=== PATIENT | male | born 1960 | race Hispanic/Latino ===

== ENCOUNTER 2019-12-13 16:05 | Emergency (ER) | payer OTHER ==
[~2019-12-13 16:05] MED LIST: ALBI30PE3 SQ; AMLO10TA7 PO; ASPI-555 PO; HYDR25TA PO; INSU100V3 SQ; INSU3INS3 SQ; IRBE300T19 PO; OMEP40CA13 PO; SIMV-43 PO; VENL-53 PO
[2019-12-13] MEDS ORDERED: ZOSYN 3.375GM+NS 50ML 50 ML IV ONE (18:01)
[2019-12-13] MEDS ORDERED: VANCOMYCIN 1GM+NS 250ML 500 ML IV ONE (18:01)
[2019-12-13 18:11] LABS: BASOPHILS % (AUTO) 0.5 % (0.0-5.0); EOSINOPHILS % (AUTO) 4.9 % (0.0-8.0); HEMATOCRIT 41.1 % (42-54); LYMPHOCYTES % (AUTO) 26.4 % (21.0-51.0); MEAN CORPUSCULAR HEMOGLOBIN 28.9 pg (27.0-33.0); MEAN CORPUSCULAR HGB CONC 33.1 g/dL (32.0-36.0); MEAN CORPUSCULAR VOLUME 87.4 fL (79-99); NEUTROPHILS % (AUTO) 61.8 % (40.0-77.0); PLATELET COUNT (AUTO) 140 K/uL (130-400); RED CELL DISTRIBUTION WIDTH 13.8 % (11.0-15.5); WHITE BLOOD COUNT (AUTO) 7.8 K/uL (4.8-10.8)
[2019-12-13 18:44] LABS: CREATININE 0.9 mg/dL (0.5-1.5); POTASSIUM 4.1 mmol/L (3.5-5.1)
[2019-12-13 18:48] LABS: ALBUMIN 3.2 g/dL (3.5-5.0); BILIRUBIN,TOTAL 0.7 mg/dL (0.2-1.0); TOTAL PROTEIN, SERUM 6.7 g/dL (6.0-8.3)
[2019-12-13] MEDS ORDERED: IOHEXOL-350 75 ML VIAL IV ONE (19:16)
== END 2019-12-13 21:26 | disposition home or self-care (01) ==
LOC: EDH 16:05
DX: N43.3 Hydrocele, unspecified (principal); E11.9 Type 2 diabetes mellitus without complications; E78.5 Hyperlipidemia, unspecified; I10 Essential (primary) hypertension; Z90.49 Acquired absence of other specified parts of digestive tract
CPT/HCPCS: 36415; 72193; 76870; 80053; 83605; 85025; 87040; 96365; 96366; 96367; 99285; J2543; J3370; Q9967

== ENCOUNTER → 2024-02-08 | Outpatient (CLI) | payer MEDICARE ==
[~2024-02-08] MED LIST changes: +AMLO-258 PO; -AMLO10TA7 PO; -ASPI-555 PO; +ASPI-556 PO; -IRBE300T19 PO; +IRBE300T26 PO; -OMEP40CA13 PO; +OMEP40CA21 PO
== END | disposition home or self-care (01) ==
LOC: RAH 16:55
PROVIDERS: ATTEND Internal Medicine
DX: M54.16 Radiculopathy, lumbar region (principal); M62.830 Muscle spasm of back
CPT/HCPCS: 72100

== ENCOUNTER → 2024-05-02 | Outpatient (CLI) | payer MEDICARE | END | disposition home or self-care (01) | LOC: OIH 10:44 | PROVIDERS: ATTEND Internal Medicine | DX: M16.12 Unilateral primary osteoarthritis, left hip (principal) | CPT/HCPCS: 73502 ==

== ENCOUNTER 2024-07-27 18:57 | Inpatient (IN) | payer MEDICARE ==
[~2024-07-27] VITALS: Ht 180.3 cm; Wt 127.3 kg
[~2024-07-27 18:57] MED LIST changes: +AZIT500T4 PO
[2024-07-27 19:32] LABS: BASOPHILS # (AUTO) 0.05 K/uL (0.00-0.20); BASOPHILS % (AUTO) 0.5 % (0.0-5.0); EOSINOPHILS # (AUTO) 0.12 K/uL (0.00-0.70); EOSINOPHILS % (AUTO) 1.1 % (0.0-8.0); HEMATOCRIT 37.5 % (42-54); LYMPHOCYTES # (AUTO) 1.6 K/uL (1.0-4.8); LYMPHOCYTES % (AUTO) 14.9 % (21.0-51.0); MEAN CORPUSCULAR HEMOGLOBIN 30.7 pg (27.0-33.0); MEAN CORPUSCULAR HGB CONC 33.1 g/dL (32.0-36.0); MEAN CORPUSCULAR VOLUME 92.8 fL (79-99); MONOCYTES # (AUTO) 0.4 K/uL (0.1-1.0); MONOCYTES % (AUTO) 4.1 % (3.0-13.0); NEUTROPHILS # (AUTO) 8.5 K/uL (1.8-7.7); NEUTROPHILS % (AUTO) 78.5 % (40.0-77.0); PLATELET COUNT (AUTO) 207 K/uL (130-400); RED BLOOD CELL COUNT(AUTO) 4.04 MIL/uL (4.50-6.20); RED CELL DISTRIBUTION WIDTH 13.6 % (11.0-15.5); WHITE BLOOD COUNT (AUTO) 10.8 K/uL (4.8-10.8)
[2024-07-27 19:36] LABS: CREATININE 1.8 mg/dL (0.5-1.3); POTASSIUM 4.3 mmol/L (3.5-5.1)
[2024-07-27 19:40] LABS: ALBUMIN 3.2 g/dL (3.5-5.0); BILIRUBIN,TOTAL 1.1 mg/dL (0.2-1.0); TOTAL PROTEIN, SERUM 5.9 g/dL (6.0-8.3)
[2024-07-27] MEDS: 0.9%NACL 1000ML 1,000 ML IV ONE ×2 (19:52→20:04)
[2024-07-27] MEDS: dexaMETHasone SOD PHOSPHATE 4 MG/ML 1ML VIAL IM ONE (19:58)
[2024-07-27] MEDS: ONDANSETRON 4MG INJ IVP ONE (19:58)
[2024-07-27] MEDS: mecliZINE HCL 25 MG TABLET PO ONE (19:58)
[2024-07-27] MEDS ORDERED: NOREPINEPHRIN 8MG/250ML NS 250 ML IV SCH (20:30)
[2024-07-27] MEDS: NOREPINEPHRIN 4MG/NS 250ML 250 ML IV SCH (20:38)
[2024-07-27] MEDS: AZITHROMYCIN 500MG+NS 250ML 250 ML IVPB SCH (21:55)
[2024-07-27] MEDS: cefTRIAXone 1G VIAL IVPB ONE (21:55)
[2024-07-27] MEDS ORDERED: VANCOMYCIN KIT 1 GM/250 ML IV.KIT IV ONE (22:00)
[2024-07-27] MEDS ORDERED: acetaMINOPHEN 325 MG TAB PO PRN (22:00)
[2024-07-27] MEDS ORDERED: VANCOMYCIN PROTOCOL PER PHARMACY IV SCH (22:00)
[2024-07-27] MEDS: 0.9%NACL 1000ML 1,000 ML IV SCH (22:00)
[2024-07-27] MEDS: ceFEPime HCL 1 GM VIAL IVPB SCH (22:36)
[2024-07-27] MEDS: IpraTROPium/alBUTERol SULFATE 3 ML SOLUTION IH SCH (23:01)
[2024-07-27 23:02] VITALS: PULSE 86; RESP 18; O2SAT 96
[2024-07-27 23:03] VITALS: PULSE 86; RESP 18
[2024-07-27] MEDS: HEParin 5,000 UNIT VIAL SQ SCH (23:54)
[2024-07-27] MEDS: VANCOMYCIN 1.5 GM/250 ML BAG 250 ML IV SCH (23:54)
[2024-07-28] VITALS (16 sets, daily range): BP systolic 128–166; BP diastolic 66–96; PULSE 76–93; RESP 18–26; TEMP 97.7–98.7; O2SAT 91–98
[2024-07-28 00:28] LABS: SARS-CoV-2, RNA, NAAT NEGATIVE SARS CoV-2 (NEGATIVE)
[2024-07-28 00:33] LABS: INFLUENZA TYPE A Negative For Type A (NEGATIVE); INFLUENZA TYPE B Negative For Type B (NEGATIVE)
[2024-07-28 06:32] LABS: BASOPHILS # (AUTO) 0.02 K/uL (0.00-0.20); BASOPHILS % (AUTO) 0.1 % (0.0-5.0); HEMATOCRIT 40.2 % (42-54); LYMPHOCYTES # (AUTO) 0.8 K/uL (1.0-4.8); LYMPHOCYTES % (AUTO) 5.3 % (21.0-51.0); MEAN CORPUSCULAR HEMOGLOBIN 30.8 pg (27.0-33.0); MEAN CORPUSCULAR HGB CONC 33.1 g/dL (32.0-36.0); MEAN CORPUSCULAR VOLUME 93.1 fL (79-99); MONOCYTES # (AUTO) 0.3 K/uL (0.1-1.0); NEUTROPHILS % (AUTO) 91.9 % (40.0-77.0); PLATELET COUNT (AUTO) 208 K/uL (130-400); RED BLOOD CELL COUNT(AUTO) 4.32 MIL/uL (4.50-6.20); RED CELL DISTRIBUTION WIDTH 13.3 % (11.0-15.5); WHITE BLOOD COUNT (AUTO) 14.2 K/uL (4.8-10.8)
[2024-07-28 06:39] LABS: HEMOGLOBIN A1C 7.6 % (4.0-6.0)
[2024-07-28 06:53] LABS: CREATININE 1.2 mg/dL (0.5-1.3); POTASSIUM 4.5 mmol/L (3.5-5.1); THYROID STIMULATING HORMONE 0.35 uIU/mL (0.36-3.74)
[2024-07-28] MEDS: INSULIN humuLIN R 100 UNIT/ML 3ML SQ SCH (07:34)
[2024-07-28] MEDS: PANTOPRAZOLE 40 MG TAB DR PO SCH (09:09)
[2024-07-28] MEDS: acetaMINOPHEN 325 MG TAB PO PRN (16:03)
[2024-07-28] MEDS ORDERED: GLIM4TAB36 PO (17:26)
[2024-07-28] MEDS ORDERED: OMEP40CA21 PO (17:26)
[2024-07-28] MEDS ORDERED: IRBE300T26 PO (17:26)
[2024-07-28] MEDS ORDERED: DOXE50CA4 PO (17:26)
[2024-07-28] MEDS ORDERED: FURO40TA5 PO (17:26)
[2024-07-28] MEDS ORDERED: SIMV40TA59 PO (17:26)
[2024-07-28] MEDS ORDERED: TAMS-1 PO (17:26)
[2024-07-28] MEDS ORDERED: ZOLP10TA2 PO (17:26)
[2024-07-28] MEDS ORDERED: MECL-226 PO (17:26)
[2024-07-28] MEDS ORDERED: MONT-39 PO (17:26)
[2024-07-28] MEDS ORDERED: TIZA-194 PO (17:26)
[2024-07-28] MEDS ORDERED: DICL35CA3 PO (17:26)
[2024-07-28] MEDS ORDERED: ESCI-8 PO (17:26)
[2024-07-28] MEDS: ketOROlac 15MG/ML VIAL (15MG/ML) IV PRN (18:33)
[2024-07-28] MEDS: INSULIN GLARgine 100 UNITS/ML 10 ML VIAL SQ SCH (21:00)
[2024-07-29 00:23] VITALS: BP 155/86; PULSE 84; RESP 20; TEMP 98.2
[2024-07-29 03:54] VITALS: BP 161/99; PULSE 81; RESP 20; TEMP 98.2
[2024-07-29 03:54] LABS: BASOPHILS # (AUTO) 0.04 K/uL (0.00-0.20); BASOPHILS % (AUTO) 0.3 % (0.0-5.0); EOSINOPHILS # (AUTO) 0.11 K/uL (0.00-0.70); EOSINOPHILS % (AUTO) 0.9 % (0.0-8.0); HEMATOCRIT 38.6 % (42-54); IMMATURE GRANULOCYTE ABSOLUTE 0.09 K/uL (0-1); LYMPHOCYTES # (AUTO) 2.6 K/uL (1.0-4.8); LYMPHOCYTES % (AUTO) 19.8 % (21.0-51.0); MEAN CORPUSCULAR HEMOGLOBIN 30.7 pg (27.0-33.0); MEAN CORPUSCULAR HGB CONC 32.6 g/dL (32.0-36.0); MEAN CORPUSCULAR VOLUME 94.1 fL (79-99); MONOCYTES # (AUTO) 0.7 K/uL (0.1-1.0); MONOCYTES % (AUTO) 5.7 % (3.0-13.0); NEUTROPHILS # (AUTO) 9.3 K/uL (1.8-7.7); NEUTROPHILS % (AUTO) 72.6 % (40.0-77.0); PLATELET COUNT (AUTO) 193 K/uL (130-400); RED CELL DISTRIBUTION WIDTH 13.6 % (11.0-15.5); WHITE BLOOD COUNT (AUTO) 12.9 K/uL (4.8-10.8)
[2024-07-29 05:08] LABS: ALBUMIN 3.3 g/dL (3.5-5.0); BILIRUBIN,TOTAL 0.7 mg/dL (0.2-1.0); CREATININE 1.1 mg/dL (0.5-1.3); POTASSIUM 4.2 mmol/L (3.5-5.1); TOTAL PROTEIN, SERUM 6.3 g/dL (6.0-8.3)
[2024-07-29 07:50] VITALS: O2SAT 100
[2024-07-29 08:13] VITALS: BP 143/85; PULSE 76; RESP 20; TEMP 97.8
== END 2024-07-29 09:45 | disposition home or self-care (01) | DRG 871 ==
LOC: EDH 18:57 → EDHIP 21:51 → 2BH 07-28 07:25 → 4DH 07-28 17:35
PROVIDERS: ADMIT Internal Medicine; ATTEND Internal Medicine
DX: A41.89 Other specified sepsis (principal); J10.08 Influenza due to other identified influenza virus with other specified pneumonia; R65.21 Severe sepsis with septic shock; N17.9 Acute kidney failure, unspecified; E11.65 Type 2 diabetes mellitus with hyperglycemia; E11.22 Type 2 diabetes mellitus with diabetic chronic kidney disease; N18.30 Chronic kidney disease, stage 3 unspecified; I12.9 Hypertensive chronic kidney disease with stage 1 through stage 4 chronic kidney disease, or unspecified chronic kidney disease; E66.01 Morbid (severe) obesity due to excess calories; F32.A Depression, unspecified; E78.00 Pure hypercholesterolemia, unspecified; Z90.49 Acquired absence of other specified parts of digestive tract; Z91.148 Patient's other noncompliance with medication regimen for other reason; Z68.39 Body mass index [BMI] 39.0-39.9, adult
CPT/HCPCS: 36415; 70450; 71045; 80048; 80053; 82308; 82948; 83036; 83605; 83735; 84145; 84443; 84484; 85025; 87040; 87635; 87804; 87880; 93005; 93880; 94640; 94664; 99291; G0378; J0456; J0692; J0696; J1100; J1644; J1815; J1885; J2405; J3490; J7030; J3370

== ENCOUNTER → 2024-09-02 | Outpatient (CLI) | payer MEDICARE ==
[~2024-09-02] MED LIST changes: -AMLO-258 PO; -ASPI-556 PO; -AZIT500T4 PO; +DICL35CA3 PO; +DOXE50CA4 PO; +ESCI-8 PO; +FURO40TA5 PO; +GLIM4TAB36 PO; -HYDR25TA PO; -INSU100V3 SQ; +MECL-226 PO; +MONT-39 PO; -SIMV-43 PO; +SIMV40TA59 PO; +TAMS-1 PO; +TIZA-194 PO; -VENL-53 PO; +ZOLP10TA2 PO
== END | disposition home or self-care (01) ==
LOC: RAH 16:41
PROVIDERS: ATTEND Internal Medicine
DX: J42 Unspecified chronic bronchitis (principal); M47.815 Spondylosis without myelopathy or radiculopathy, thoracolumbar region
CPT/HCPCS: 71046

== ENCOUNTER → 2024-09-09 | Outpatient (CLI) | payer MEDICARE | END | disposition home or self-care (01) | LOC: RAH 13:50 | PROVIDERS: ATTEND Internal Medicine | DX: G31.89 Other specified degenerative diseases of nervous system (principal); M47.812 Spondylosis without myelopathy or radiculopathy, cervical region; M48.02 Spinal stenosis, cervical region; G45.9 Transient cerebral ischemic attack, unspecified | CPT/HCPCS: 70450; 70490 ==